=== PATIENT | female | born 1980 | race Caucasian/White ===

== ENCOUNTER 2024-07-03 16:13 | Emergency (ER) | payer MEDICAID, OTHER ==
[~2024-07-03] VITALS: Ht 162.6 cm; Wt 72.6 kg
[~2024-07-03 16:13] MED LIST: ALBU0.0939; biktarvy PO
[2024-07-03 16:16] VITALS: BP 140/63; PULSE 77; RESP 18; TEMP 97.7; O2SAT 98
[2024-07-03 16:20] VITALS: BP 102/72; PULSE 141; RESP 20; TEMP 97.5; O2SAT 95
[2024-07-03 16:56] VITALS: PULSE 140; RESP 28; O2SAT 94
[2024-07-03] MEDS: ALBUTEROL SULFATE/IPRATROPIU 3 ML SOL IH ONE (16:56)
[2024-07-03 17:06] LABS: BASOPHILS % (AUTO) 0.1 % (0.0-2.0); HEMATOCRIT 40.1 % (36-48); HEMOGLOBIN 13.3 g/dL (12.0-16.0); LYMPHOCYTES # (AUTO) 1.3 K/uL (2.5-16.5); LYMPHOCYTES % (AUTO) 5.6 % (20.5-51.1); MEAN CORPUSCULAR HEMOGLOBIN 29 pg (27-31); MEAN CORPUSCULAR HGB CONC 33 g/dL (33-37); MEAN CORPUSCULAR VOLUME 85.8 fL (80-94); MONOCYTES # (AUTO) 0.9 K/uL (0.8-1.0); NEUTROPHILS # (AUTO) 20.2 K/uL (1.8-7.7); NEUTROPHILS % (AUTO) 90.3 % (42.2-75.2); PLATELET COUNT (AUTO) 137 K/uL (140-450); RED BLOOD CELL COUNT(AUTO) 4.68 MIL/uL (4.20-5.40); RED CELL DISTRIBUTION WIDTH 13.8 % (11.6-13.7); WHITE BLOOD COUNT (AUTO) 22.4 K/uL (4.8-10.8)
[2024-07-03 17:18] LABS: ANION GAP 6.7 (8-16); CALCIUM 8.4 mg/dL (8.5-10.1); CARBON DIOXIDE 31.2 mmol/L (21-32); CREATININE 0.8 mg/dL (0.6-1.3)
[2024-07-03 17:21] LABS: INR 1.1 (0.8-1.2); PARTIAL THROMBOPLASTIN TIME 26.6 secs (22-35.6); POTASSIUM 2.9 mmol/L (3.5-5.1); PROTHROMBIN TIME 11.4 secs (10.8-13.4)
[2024-07-03 18:48] VITALS: BP 117/75; PULSE 134; PULSE 135; PULSE 136; RESP 24; O2SAT 99
[2024-07-03] MEDS: ALBUTEROL 0.083% 2.5 MG/3 ML NEBU INH ONE (18:48)
[2024-07-03] MEDS ORDERED: AZITHROMYCIN 500 MG INJ VIAL IV ONE (19:24)
[2024-07-03] MEDS ORDERED: cefTRIAXone 1,000 MG VIAL ONE (19:25)
[2024-07-03] MEDS: POTASSIUM CHLORIDE 10 MEQ TABER PO ONE (19:37)
[2024-07-03] MEDS: KCL 20 MEQ IN 100 mL PREMIX 200 ML IV ONE (20:02)
[2024-07-03] MEDS: AZITHROMYCIN 500 MG in DEXTROSE 5% 250 ML IV ONE (20:20)
[2024-07-03] MEDS ORDERED: ALBU0.0912 INH (20:37)
[2024-07-03] MEDS ORDERED: AMOX1TAB8 PO (20:37)
[2024-07-03] MEDS ORDERED: PRED20TA5 PO (20:37)
[2024-07-03] MEDS ORDERED: AZIT250T4 PO (20:37)
[2024-07-03] MEDS ORDERED: POTA10TA70 PO (20:39)
[2024-07-03] MEDS: methylPREDNISolone SS 125 MG/2 ML VIAL IM ONE (20:49)
[2024-07-03 20:50] VITALS: BP 118/68; PULSE 133; RESP 30; TEMP 98.2; O2SAT 91
== END 2024-07-03 20:35 | disposition left against medical advice (07) ==
LOC: MED 16:13
DX: J96.00 Acute respiratory failure, unspecified whether with hypoxia or hypercapnia (principal); J44.9 Chronic obstructive pulmonary disease, unspecified; J18.9 Pneumonia, unspecified organism; E87.6 Hypokalemia; E87.1 Hypo-osmolality and hyponatremia; R73.9 Hyperglycemia, unspecified; I50.9 Heart failure, unspecified; F17.200 Nicotine dependence, unspecified, uncomplicated; Z79.899 Other long term (current) drug therapy
CPT/HCPCS: 36415; 71045; 80048; 83880; 84484; 85025; 85610; 85730; 87040; 93005; 94640; 96365; 96368; 96372; 99291; J0696; J2919; J3480; J7613; Q0092; J0456